=== PATIENT | female | born 1955 | race Caucasian/White ===

== ENCOUNTER → 2017-04-28 | Outpatient (CLI) | payer BC ==
--- NOTE | 2017-04-30 08:06 | MR ---
EXAMINATION TYPE: MR knee LT wo con DATE OF EXAM: 04/28/2017 COMPARISON: NONE HISTORY: Meniscus tear, left knee. Medial left knee pain for one month. No unspecified injury. TECHNIQUE: Multiplanar, multisequence imaging of the left knee is performed without IV contrast. FINDINGS: MEDIAL MENISCUS: There is a longitudinal tear of the posterior horn of the medial meniscus subtly con tacting the inferior articular surface with heterogenous signal and enlargement of the posterior body of the free margin. Tear the tear extends extends towards the body but does not involve the anterior horn although there is extension into the root with abnormal signal at the root. No associated para meniscal cyst or disc extrusion. LATERAL MENISCUS: Anterior and posterior horns are intact without tear. CRUCIATE LIGAMENTS: The anterior and posterior cruciate ligaments are intact. Increased signal is see n throughout the mid and posterior fibers of the anterior cruciate ligament compatible with low-grade sprain. COLLATERAL LIGAMENTS: The medial collateral ligament and lateral collateral ligament complex are inta ct. High signal seen superficial and deep to the medial collateral ligament with intact fibers compat ible with grade 1 sprain and mild bursitis. EXTENSOR MECHANISM: Visualized quadriceps and patellar tendons are intact. EFFUSION: No significant suprapatellar joint effusion. POPLITEAL CYST: No popliteal/rios cyst. TRICOMPARTMENT SPACES: Joint spaces are maintained. CARTILAGE: No partial or full-thickness cartilaginous defects are seen in the medial or lateral joint compartments. Within the cartilage of the lateral patellar facets there is heterogenous signal and f issuring with no full-thickness defect appreciated. No abnormal subcartilaginous bone marrow signal. BONE MARROW SIGNAL: No focal abnormal marrow signal is appreciated. OTHER: High signal is seen in the insertional fibers of the semimembranosus related to low-grade mus cular strain. IMPRESSION: 1. Longitudinal tear of the posterior horn of the medial meniscus extending into the body and posteri or root. No apparent meniscal cyst or disc extrusion is seen. 2. Findings compatible with grade 1 MCL sprain and mild bursitis. 3. Low-grade ACL sprain and semimembranosus strain. 4. Mild patellofemoral chondrosis.
== END | disposition home or self-care (01) ==
LOC: RADMRIMAIN 20:28
PROVIDERS: ATTEND Family Medicine
DX: S83.242A Other tear of medial meniscus, current injury, left knee, initial encounter (principal); S83.402A Sprain of unspecified collateral ligament of left knee, initial encounter